=== PATIENT | female | born 1990 | race African-American/Black ===

== ENCOUNTER 2023-10-07 14:04 | Emergency (ER) | payer OTHER ==
[~2023-10-07] VITALS: Ht 177.8 cm; Wt 177.0 kg
[2023-10-07 14:06] VITALS: O2SAT 98
[2023-10-07 15:21] VITALS: BP 153/80; PULSE 77; RESP 16; TEMP 98.9
[2023-10-07] MEDS ORDERED: ACETAMINOPHEN 325MG TABLET PO STA (16:53)
[2023-10-07] MEDS ORDERED: METH-653 GT (17:00)
== END 2023-10-07 18:17 | disposition home or self-care (01) ==
LOC: ER 14:04
DX: M54.50 Low back pain, unspecified (principal); I10 Essential (primary) hypertension
CPT/HCPCS: 99282; 99283

== ENCOUNTER 2025-04-17 19:08 | Emergency (ER) | payer OTHER ==
[~2025-04-17] VITALS: Ht 180.3 cm; Wt 172.0 kg
[~2025-04-17 19:08] MED LIST: METH-653 GT
[2025-04-17 19:38] VITALS: O2SAT 98
[2025-04-17] MEDS: LEVOFLOXACIN 500MG PREMIX 100 ML IV ONE (20:47)
[2025-04-17 20:50] LABS: BASOPHILS % 0.6 % (0.0-2.0); HEMATOCRIT. 42.8 % (36.0-48.0); HEMOGLOBIN. 14.3 g/dL (12.0-16.0); LYMPHOCYTES % 14.4 % (20.0-50.0); MEAN CORPUSCULAR HEMOGLOBIN 30.1 pg (28.0-32.0); MEAN CORPUSCULAR HGB CONC 33.3 g/dL (31.0-37.0); MEAN CORPUSCULAR VOLUME 90.4 fL (81.0-99.0); MEAN PLATELET VOLUME 8.9 fl (7.4-10.4); MONOCYTES % 10.6 % (2.0-8.0); NEUTROPHILS % 74.4 % (40.0-76.0); PLATELET 301 x1000/uL (130-400); RED BLOOD CELL COUNT 4.74 mill/uL (4.2-5.4); RED CELL DISTRIBUTION WIDTH 15.4 % (11.6-14.6); WHITE BLOOD COUNT 9.2 x1000/uL (4.5-11.0)
[2025-04-17] MEDS: SODIUM CHLORIDE 0.9% (SEPSIS BOLUS) IV ONE (20:53)
[2025-04-17] MEDS: IBUPROFEN 800MG TABLET PO ONE (20:57)
[2025-04-17 22:37] VITALS: TEMP 36.9
[2025-04-18] MEDS ORDERED: IBUP-2030 MT (00:29)
[2025-04-18] MEDS ORDERED: LEVO-65 MT (00:29)
[2025-04-18 01:26] VITALS: BP 143/87; PULSE 91; RESP 16; O2SAT 99
== END 2025-04-18 01:28 | disposition home or self-care (01) ==
LOC: ER 19:08
DX: N39.0 Urinary tract infection, site not specified (principal); I10 Essential (primary) hypertension
CPT/HCPCS: 99291; 96365; 83605; 85025; 36415; J1956; J7030